=== PATIENT | female | born 1950 ===

== ENCOUNTER 2019-10-26 17:08 | Inpatient (IN) ==
[2019-10-26 18:14] LABS: Basophils % 0.2 %; Hematocrit 35.7 % (35.3-44.9); Hemoglobin 11.7 g/dL (11.5-15.4); Immature Granulocytes % 0.3 % (0-4); Lymphocytes # 1.1 K/mcL (0.6-4.6); Lymphocytes % 10.7 %; Mean Corpuscular HGB Conc 32.8 g/dL (31.6-35.5); Mean Corpuscular Hemoglobin 28.7 pg (28.0-33.3); Mean Corpuscular Volume 87.7 fL (83.0-100.0); Mean Platelet Volume 11.8 fL (9.4-12.4); Monocytes # 0.9 K/mcL (0.0-1.3); Monocytes % 8.3 %; Neutrophils # 8.4 K/mcL (1.6-8.9); Platelet Count 189 K/mcL (140-400); Red Blood Count 4.07 M/mcL (3.82-4.97); Red Cell Distribution Width 13.4 % (11.5-14.5); Segmented Neutrophils % 80.5 %; White Blood Count 10.4 K/mcL (4.3-11.1)
[2019-10-26 18:22] LABS: INR 1.4; Prothrombin Time 15.7 Seconds (9.4-12.1)
[2019-10-26 18:24] LABS: Activated Partial Thrombo Time 31.5 Seconds (26.0-36.0)
[2019-10-26 18:34] LABS: Albumin 3.9 g/dL (3.5-5.7); Albumin/Globulin Ratio 1.3 (1.1-2.2); Bilirubin,Total 0.9 mg/dL (0.3-1.0); Calcium 9.2 mg/dL (8.6-10.3); Globulin 3.1 g/dL (2.4-3.5); Potassium 3.4 mEq/L (3.5-5.1)
[2019-10-26] MEDS ORDERED: Isovue-370 500 ML BOTTLE IVP ONE (18:37)
[2019-10-26 18:39] LABS: Troponin I 3.38 ng/mL (< 0.04)
[2019-10-26] MEDS ORDERED: Aspirin 81 MG TAB.CHEW PO ONE (18:39)
[2019-10-26] MEDS ORDERED: *HR* Heparin 5,000 UNIT/ML VIAL IVP ONE (18:40)
[2019-10-26] MEDS ORDERED: *HR* Heparin 5,000 UNIT/ML VIAL IVP PRN (18:40)
[2019-10-26] MEDS: Heparin 25,000 UNIT/250 ML D5W 25,000 UNIT/250 ML IV.SOLN IVC SCH (19:08)
[2019-10-26 19:11] LABS: Thyroid Stimulating Hormone 0.674 mcIU/mL (0.340-5.600)
[2019-10-26 19:15] LABS: Hematocrit 32.9 % (35.3-44.9); Hemoglobin 11.3 g/dL (11.5-15.4); Mean Corpuscular HGB Conc 34.3 g/dL (31.6-35.5); Mean Corpuscular Hemoglobin 30.4 pg (28.0-33.3); Mean Corpuscular Volume 88.4 fL (83.0-100.0); Mean Platelet Volume 11.2 fL (9.4-12.4); Platelet Count 170 K/mcL (140-400); Red Blood Count 3.72 M/mcL (3.82-4.97); Red Cell Distribution Width 13.3 % (11.5-14.5)
[2019-10-26 19:20] LABS: INR 1.4; Prothrombin Time 15.6 Seconds (9.4-12.1)
[2019-10-26 19:24] LABS: Heparin anti-factor XA UFH < 0.04 IU/mL (0.30-0.70)
[2019-10-26 22:13] LABS: Bacteria,Urine Few per hpf (None-Few); Bilirubin,Urine Negative (Negative); Blood,Urine Negative (Negative); Clarity,Urine Turbid (Clear); Color,Urine Dark-Yellow (Yellow); Glucose,Urine (UA) Normal (Normal); Ketones,Urine Negative (Negative); Leukocyte Esterase,Urine Large (Negative); Mucus,Urine Few per lpf (None-Few); Nitrite,Urine Negative (Negative); Protein,Urine 200 mg/dL (Neg-Trace); RBC,Urine 15-30 per hpf (0-3); Specific Gravity,Urine > 1.030 (1.010-1.025); Squamous Epithelial Cell,Urine Few per hpf (None-Few); Urobilinogen,Urine Normal (Normal); WBC,Urine 50-100 per hpf (0-3)
[2019-10-26] MEDS ORDERED: Naloxone 0.4 MG/ML INJ IVP PRN (23:09)
[2019-10-26] MEDS ORDERED: *HR* Promethazine 25 MG/ML VIAL IVP PRN (23:09)
[2019-10-26] MEDS ORDERED: 0.9 % Sodium Chloride 1,000 ML IVC SCH (23:15)
[2019-10-27] MEDS ORDERED: *HR* Metoprolol 5 MG/5 ML VIAL IVP PRN (00:03)
[2019-10-27] MEDS ORDERED: *HR* Dextrose 50 % in Water (Vial) 50 ML VIAL IVP PRN (00:04)
[2019-10-27] MEDS ORDERED: Dextrose Gel 15 GM/37.5 ML TUBE PO PRN ×2 (00:04)
[2019-10-27] MEDS ORDERED: D5% in Water 1,000 ML IVC PRN (00:04)
[2019-10-27] MEDS: hydrALAZINE 25 MG TABLET PO SCH ×3 (00:28→20:26)
[2019-10-27 01:17] LABS: Basophils % 0.2 %; Hematocrit 32.2 % (35.3-44.9); Hemoglobin 10.9 g/dL (11.5-15.4); Immature Granulocytes % 0.5 % (0-4); Lymphocytes # 0.5 K/mcL (0.6-4.6); Lymphocytes % 7.7 %; Mean Corpuscular HGB Conc 33.9 g/dL (31.6-35.5); Mean Corpuscular Hemoglobin 29.9 pg (28.0-33.3); Mean Corpuscular Volume 88.5 fL (83.0-100.0); Mean Platelet Volume 10.9 fL (9.4-12.4); Monocytes # 0.4 K/mcL (0.0-1.3); Monocytes % 6.2 %; Neutrophils # 5.7 K/mcL (1.6-8.9); Platelet Count 142 K/mcL (140-400); Red Blood Count 3.64 M/mcL (3.82-4.97); Red Cell Distribution Width 13.5 % (11.5-14.5); Segmented Neutrophils % 85.4 %; White Blood Count 6.7 K/mcL (4.3-11.1)
[2019-10-27 01:36] LABS: INR 1.5; Prothrombin Time 16.5 Seconds (9.4-12.1)
[2019-10-27] MEDS: 0.9 % Sodium Chloride 1,000 ML IVC SCH ×2 (01:49→17:16)
[2019-10-27 01:50] LABS: Calcium 8.6 mg/dL (8.6-10.3); Chol/HDL Ratio 5.1 (0-4.9); Magnesium 1.2 mg/dL (1.6-2.6); Phosphorous 1.6 mg/dL (2.7-4.5); Potassium 3.7 mEq/L (3.5-5.1)
[2019-10-27] MEDS: *HR* Heparin 5,000 UNIT/ML VIAL IVP PRN ×2 (01:56→22:40)
[2019-10-27] MEDS: cefTRIAXone 1,000 MG in 0.9 % Sodium Chloride Mini Bag 100 ML IVPB SCH ×2 (03:02→17:17)
[2019-10-27] MEDS: Acetaminophen 325 MG TABLET PO PRN (03:26)
[2019-10-27 06:45] LABS: Ferritin 153 ng/mL (10-120); Iron < 10 mcg/dL (50-170); Transferrin 259 mg/dL (203-362)
[2019-10-27 06:51] LABS: Folate > 22.3 ng/mL (3.0-16.0); Vitamin B12 740 pg/mL (250-1100)
[2019-10-27] MEDS: Aspirin 325 MG TABLET PO SCH (07:56)
[2019-10-27] MEDS: Insulin LISPRO 300 UNITS/3 ML VIAL SQ SCH ×4 (07:57→20:28)
[2019-10-27] MEDS: Metoprolol XL (24 HR) Succ 50 MG TAB.ER.24H PO SCH (07:57)
[2019-10-27] MEDS: LIRAGLUTIDE SQ SCH (08:02)
[2019-10-27] MEDS: INSULIN DEGLUDEC SQ SCH (08:02)
[2019-10-27] MEDS: Iron Sucrose Complex 250 MG in 0.9 % Sodium Chloride 250 ML IVPB SCH (10:31)
[2019-10-27] MEDS ORDERED: Nitroglycerin 1,000 MCG/10 ML VIAL IV ONE (11:03)
[2019-10-27] MEDS ORDERED: Heparin 1,000 UNITS/500 mL 500 ML ONE (11:03)
[2019-10-27] MEDS ORDERED: *HR* Heparin 10,000 UNIT/10 ML VIAL ONE (11:03)
[2019-10-27] MEDS ORDERED: 0.9 % Sodium Chloride 2,000 ML ONE (11:03)
[2019-10-27] MEDS ORDERED: ISOVUE-370 200 ML INFUS..BTL ONE (11:03)
[2019-10-27] MEDS ORDERED: Tirofiban 12.5 MG/250ML 0 MG/0 ML BAG ONE (11:16)
[2019-10-27] MEDS ORDERED: *HR* Midazolam HCl 2 MG/2 ML VIAL ONE (11:30)
[2019-10-27] MEDS ORDERED: *HR* FentaNYL (PF) 100 MCG/2 ML VIAL ONE (11:30)
[2019-10-27 14:40] LABS: Estimated Average Glucose 163 mg/dl; Hemoglobin A1C 7.3 %
[2019-10-27 15:06] LABS: Magnesium 2.3 mg/dL (1.6-2.6); Phosphorous 3.1 mg/dL (2.7-4.5); Potassium 3.5 mEq/L (3.5-5.1)
[2019-10-27] MEDS: Heparin 25,000 UNIT/250 ML D5W 25,000 UNIT/250 ML IV.SOLN IVC SCH (20:27)
[2019-10-27] MEDS: Latanoprost 2.5 ML BOTTLE BOTH EYES SCH (22:47)
[2019-10-28 05:08] LABS: Hematocrit 28.5 % (35.3-44.9); Hemoglobin 9.5 g/dL (11.5-15.4); Mean Corpuscular HGB Conc 33.3 g/dL (31.6-35.5); Mean Corpuscular Hemoglobin 29.8 pg (28.0-33.3); Mean Corpuscular Volume 89.3 fL (83.0-100.0); Mean Platelet Volume 12.6 fL (9.4-12.4); Platelet Count 141 K/mcL (140-400); Red Blood Count 3.19 M/mcL (3.82-4.97); Red Cell Distribution Width 13.6 % (11.5-14.5); White Blood Count 5.4 K/mcL (4.3-11.1)
[2019-10-28] MEDS: *HR* Heparin 5,000 UNIT/ML VIAL IVP PRN ×2 (05:45→18:33)
[2019-10-28] MEDS: Aspirin 325 MG TABLET PO SCH (07:58)
[2019-10-28] MEDS: hydrALAZINE 25 MG TABLET PO SCH ×2 (07:58→19:57)
[2019-10-28] MEDS: Metoprolol XL (24 HR) Succ 50 MG TAB.ER.24H PO SCH (07:59)
[2019-10-28] MEDS: INSULIN DEGLUDEC SQ SCH (07:59)
[2019-10-28] MEDS: LIRAGLUTIDE SQ SCH (07:59)
[2019-10-28] MEDS: Iron Sucrose Complex 250 MG in 0.9 % Sodium Chloride 250 ML IVPB SCH (08:00)
[2019-10-28] MEDS: Insulin LISPRO 300 UNITS/3 ML VIAL SQ SCH ×4 (08:00→19:58)
[2019-10-28 08:45] LABS: BUN/Creatinine Ratio 26 (6-26); Blood Urea Nitrogen 24 mg/dL (8-23); Calcium 8.5 mg/dL (8.6-10.3); Carbon Dioxide 24 mEq/L (23-29); Chloride 107 mEq/L (98-107); Glucose 172 mg/dL (70-105); Osmolality,Calculated 292 (280-300); Potassium 3.6 mEq/L (3.5-5.1); Sodium 137 mEq/L (136-145); eGFR For African Americans > 60 (> 60); eGFR For Non-African Americans > 60 (> 60)
[2019-10-28] MEDS: Heparin 25,000 UNIT/250 ML D5W 25,000 UNIT/250 ML IV.SOLN IVC SCH (17:20)
[2019-10-28] MEDS: Latanoprost 2.5 ML BOTTLE BOTH EYES SCH (19:59)
[2019-10-29 01:14] LABS: Hemoglobin 9.9 g/dL (11.5-15.4); Mean Corpuscular HGB Conc 31.9 g/dL (31.6-35.5); Mean Corpuscular Hemoglobin 28.9 pg (28.0-33.3); Mean Corpuscular Volume 90.4 fL (83.0-100.0); Mean Platelet Volume 11.9 fL (9.4-12.4); Platelet Count 157 K/mcL (140-400); Red Blood Count 3.43 M/mcL (3.82-4.97); Red Cell Distribution Width 13.7 % (11.5-14.5); White Blood Count 5.9 K/mcL (4.3-11.1)
[2019-10-29 01:28] LABS: BUN/Creatinine Ratio 22 (6-26); Blood Urea Nitrogen 21 mg/dL (8-23); Calcium 8.5 mg/dL (8.6-10.3); Carbon Dioxide 23 mEq/L (23-29); Chloride 110 mEq/L (98-107); Glucose 158 mg/dL (70-105); Osmolality,Calculated 300 (280-300); Potassium 3.7 mEq/L (3.5-5.1); Sodium 142 mEq/L (136-145); eGFR For African Americans > 60 (> 60); eGFR For Non-African Americans 59 (> 60)
[2019-10-29] MEDS: Insulin LISPRO 300 UNITS/3 ML VIAL SQ SCH ×4 (09:42→21:36)
[2019-10-29] MEDS: Iron Sucrose Complex 250 MG in 0.9 % Sodium Chloride 250 ML IVPB SCH (09:44)
[2019-10-29] MEDS: Aspirin 325 MG TABLET PO SCH (09:48)
[2019-10-29] MEDS: hydrALAZINE 25 MG TABLET PO SCH ×2 (09:48→21:37)
[2019-10-29] MEDS: LIRAGLUTIDE SQ SCH (09:49)
[2019-10-29] MEDS: Metoprolol XL (24 HR) Succ 50 MG TAB.ER.24H PO SCH (09:49)
[2019-10-29] MEDS: INSULIN DEGLUDEC SQ SCH (09:49)
[2019-10-29] MEDS: Heparin 25,000 UNIT/250 ML D5W 25,000 UNIT/250 ML IV.SOLN IVC SCH (12:50)
[2019-10-29] MEDS: Acetaminophen 325 MG TABLET PO PRN (16:34)
[2019-10-29] MEDS: Chlorhexidine Rinse 15 ML MOUTHWASH MM SCH (21:35)
[2019-10-29] MEDS: Latanoprost 2.5 ML BOTTLE BOTH EYES SCH (21:35)
[2019-10-30 02:22] LABS: Hematocrit 28.4 % (35.3-44.9); Hemoglobin 9.4 g/dL (11.5-15.4); Mean Corpuscular HGB Conc 33.1 g/dL (31.6-35.5); Mean Corpuscular Hemoglobin 29.6 pg (28.0-33.3); Mean Corpuscular Volume 89.3 fL (83.0-100.0); Mean Platelet Volume 11.7 fL (9.4-12.4); Platelet Count 161 K/mcL (140-400); Red Blood Count 3.18 M/mcL (3.82-4.97); Red Cell Distribution Width 13.6 % (11.5-14.5)
[2019-10-30 02:27] LABS: BUN/Creatinine Ratio 18 (6-26); Blood Urea Nitrogen 14 mg/dL (8-23); Calcium 8.7 mg/dL (8.6-10.3); Carbon Dioxide 23 mEq/L (23-29); Chloride 108 mEq/L (98-107); Glucose 84 mg/dL (70-105); Osmolality,Calculated 290 (280-300); Potassium 3.3 mEq/L (3.5-5.1); Sodium 140 mEq/L (136-145); eGFR For African Americans > 60 (> 60); eGFR For Non-African Americans > 60 (> 60)
[2019-10-30] MEDS: Heparin 25,000 UNIT/250 ML D5W 25,000 UNIT/250 ML IV.SOLN IVC SCH (02:29)
[2019-10-30 02:30] LABS: White Blood Count 9.3 K/mcL (4.3-11.1)
[2019-10-30] MEDS ORDERED: Aspirin 81 MG TAB.CHEW PO ONE (06:00)
[2019-10-30] MEDS: Metoprolol XL (24 HR) Succ 50 MG TAB.ER.24H PO SCH (06:16)
[2019-10-30] MEDS: Chlorhexidine Rinse 15 ML MOUTHWASH MM SCH ×2 (06:17→20:15)
[2019-10-30] MEDS: Insulin LISPRO 300 UNITS/3 ML VIAL SQ SCH ×2 (07:11→11:32)
[2019-10-30] MEDS: Aspirin 325 MG TABLET PO SCH (07:14)
[2019-10-30] MEDS: hydrALAZINE 25 MG TABLET PO SCH (07:15)
[2019-10-30] MEDS ORDERED: Potassium Chloride 40 MEQ, Lidocaine 1% 2 ML in 0.9 % Sodium Chloride 500 ML IVPB ONE (07:55)
[2019-10-30] MEDS ORDERED: *HR* FentaNYL (PF) 1,000 MCG/20 ML VIAL ONE (08:25)
[2019-10-30] MEDS ORDERED: *HR* Midazolam HCl 5 MG/5 ML VIAL IVP ONE (08:25)
[2019-10-30] MEDS ORDERED: *HR* Rocuronium Bromide 50 MG/5 ML VIAL ONE (08:26)
[2019-10-30] MEDS ORDERED: *HR* PHENYLEPHRINE 1,000 MCG/10 ML SYRINGE IVP ONE (08:26)
[2019-10-30] MEDS ORDERED: *HR* Etomidate 20 MG/10 ML AMPUL IVP ONE (08:27)
[2019-10-30] MEDS ORDERED: Famotidine 20 MG/2 ML VIAL ONE (08:27)
[2019-10-30] MEDS ORDERED: Protamine Sulfate 250 MG/25 ML VIAL IVP ONE (08:29)
[2019-10-30] MEDS ORDERED: Tranexamic Acid 1,000 MG/10 ML VIAL ONE ×2 (08:29→14:13)
[2019-10-30] MEDS ORDERED: Calcium Gluconate 1,000 MG/10 ML VIAL ONE (08:29)
[2019-10-30] MEDS ORDERED: Metoprolol XL (24 HR) Succ 50 MG TAB.ER.24H PO ONE (08:33)
[2019-10-30] MEDS ORDERED: NiCARdipine 2.5 MG/10 ML Syringe IVPB ONE (08:36)
[2019-10-30] MEDS ORDERED: Lidocaine 2% Syringe 100 MG/5 ML IVP ONE (10:48)
[2019-10-30] MEDS ORDERED: *HR* Heparin 10,000 UNIT/10 ML VIAL IVP ONE (10:48)
[2019-10-30] MEDS ORDERED: Sodium Bicarbonate 50 MEQ/50 ML VIAL IVP ONE (10:48)
[2019-10-30] MEDS ORDERED: *HR* Phenylephrine 10 MG/ML VIAL IVC ONE (10:48)
[2019-10-30] MEDS ORDERED: *HR* Magnesium Sulfate 2 GM/50 ML PIGGYBACK IVPB ONE (10:48)
[2019-10-30] MEDS ORDERED: Mannitol 25% vial 12.5 GM/50 ML VIAL IVPB ONE (10:48)
[2019-10-30] MEDS ORDERED: Albumin Human 25% 25 GM/100 ML IV.SOLN IV ONE (10:48)
[2019-10-30] MEDS ORDERED: Tranexamic Acid 1,000 MG/10 ML VIAL IR ONE (10:48)
[2019-10-30] MEDS ORDERED: Heparin 1,000 UNITS/500 mL IV.SOLN IR ONE (10:48)
[2019-10-30] MEDS ORDERED: CeFAZolin 2 GM/120 ML BAG IVPB ONE (12:00)
[2019-10-30] MEDS ORDERED: Norepinephrine 4 MG in 0.9 % Sodium Chloride 250 ML IVC PRN (12:20)
[2019-10-30] MEDS ORDERED: Heparin 15,000 UNIT in 0.9 % Sodium Chloride 500 ML IV ONE (12:20)
[2019-10-30] MEDS ORDERED: Dextrose 50 % in Water (Vial) 30 ML, Sodium Bicarbonate 20 MEQ, Lidocaine 1% 5 ML, Insu... TH ONE ×3 (12:20)
[2019-10-30] MEDS ORDERED: Insulin Human Regular 100 UNIT in 0.9 % Sodium Chloride 100 ML IV PRN (12:20)
[2019-10-30] MEDS ORDERED: Dextrose 50 % in Water (Vial) 30 ML, Sodium Bicarbonate 20 MEQ, Potassium Chloride 15 M... TH ONE (12:20)
[2019-10-30 12:53] LABS: ABG Base Excess -3 mEq/L (-2 to 3); ABG Chloride 109 mEq/L (98-107); ABG Glucose 97 mg/dL (60-95); ABG HCO3 25 mEq/L (21-27); ABG Ionized Calcium 1.25 mmol/L (1.15-1.35); ABG Oxygen Saturation 100 % (95-98); ABG PCO2 52 mmHg (35-45); ABG PH 7.28 pH Units (7.32-7.45); ABG PO2 362 mmHg (85-104); ABG TCO2 26 mEq/L (20-26)
[2019-10-30 13:54] LABS: ABG Base Excess -2 mEq/L (-2 to 3); ABG Chloride 109 mEq/L (98-107); ABG Glucose 126 mg/dL (60-95); ABG HCO3 24 mEq/L (21-27); ABG Ionized Calcium 1.21 mmol/L (1.15-1.35); ABG Oxygen Saturation 98 % (95-98); ABG PCO2 43 mmHg (35-45); ABG PH 7.35 pH Units (7.32-7.45); ABG PO2 105 mmHg (85-104); ABG TCO2 25 mEq/L (20-26)
[2019-10-30 14:25] LABS: VBG Base Excess 0 mEq/L; VBG Chloride 105 mEq/L (98-107); VBG Glucose 187 mg/dl (65-95); VBG HCO3 26 mEq/L (21-27); VBG Ionized Calcium 1.04 mmol/L (1.15-1.35); VBG Oxygen Saturation 70 %; VBG PCO2 45 mmHg (41-51); VBG PH 7.37 pH Units (7.32-7.42); VBG PO2 38 mmHg (25-50); VBG Total CO2 27 mEq/L
[2019-10-30 14:47] LABS: ABG Base Excess -1 mEq/L (-2 to 3); ABG Chloride 104 mEq/L (98-107); ABG Glucose 188 mg/dL (60-95); ABG HCO3 24 mEq/L (21-27); ABG Ionized Calcium 1.06 mmol/L (1.15-1.35); ABG Oxygen Saturation 100 % (95-98); ABG PCO2 41 mmHg (35-45); ABG PH 7.37 pH Units (7.32-7.45); ABG PO2 489 mmHg (85-104); ABG TCO2 25 mEq/L (20-26)
[2019-10-30] MEDS ORDERED: Albumin Human 5% 50.0 GM/1,000 ML IV.SOLN ONE (14:55)
[2019-10-30 15:37] LABS: ABG Base Excess -4 mEq/L (-2 to 3); ABG Chloride 106 mEq/L (98-107); ABG Glucose 160 mg/dL (60-95); ABG HCO3 23 mEq/L (21-27); ABG Ionized Calcium 1.37 mmol/L (1.15-1.35); ABG Oxygen Saturation 96 % (95-98); ABG PCO2 45 mmHg (35-45); ABG PH 7.31 pH Units (7.32-7.45); ABG PO2 89 mmHg (85-104); ABG TCO2 24 mEq/L (20-26)
[2019-10-30] MEDS ORDERED: Insulin Regular, Human 100 UNIT/ML IV PRN (15:38)
[2019-10-30] MEDS ORDERED: Calcium Gluconate 1gm/50mL 1 GM/50 ML BAG IVPB PRN (15:38)
[2019-10-30] MEDS ORDERED: Potassium Chloride 40 MEQ/200 ML BAG IVPB PRN (15:38)
[2019-10-30] MEDS ORDERED: Acetaminophen 650 MG RECTAL SUPP RC PRN (15:38)
[2019-10-30] MEDS ORDERED: Ondansetron 4 MG/2 ML VIAL IVP PRN (15:38)
[2019-10-30] MEDS ORDERED: Albumin Human 5% 12.5 GM/250 ML IV.SOLN IVPB PRN (15:38)
[2019-10-30] MEDS ORDERED: *HR* Dextrose 50 % in Water (Vial) 50 ML VIAL IVP PRN (15:38)
[2019-10-30] MEDS ORDERED: Albumin Human 5% 12.5 GM/250 ML IV.SOLN ONE (15:41)
[2019-10-30] MEDS: Pantoprazole 40 MG VIAL IVP SCH ×2 (16:02→17:01)
[2019-10-30 16:26] LABS: ABG Base Excess -1 mEq/L (-2 to 3); ABG HCO3 25 mEq/L (21-27); ABG Oxygen Saturation 96 % (95-98); ABG PCO2 45 mmHg (35-45); ABG PH 7.35 pH Units (7.32-7.45); ABG PO2 86 mmHg (85-104); ABG TCO2 26 mEq/L (20-26); Blood Gas VT 500 cc
[2019-10-30 16:35] LABS: Basophils % 0.6 %; Eosinophils % 1.7 %; Hematocrit 32.7 % (35.3-44.9); Nucleated Red Blood Cells 0.2 /100 WBC (0)
[2019-10-30 16:37] LABS: Basophils # 0.1 K/mcL (0.0-0.2); Eosinophils # 0.2 K/mcL (0.0-0.6); Hemoglobin 10.6 g/dL (11.5-15.4); Immature Granulocytes % 2.4 % (0-4); Immature Platelets 7.3 % (1.1-6.1); Lymphocytes # 2.2 K/mcL (0.6-4.6); Lymphocytes % 22.2 %; Mean Corpuscular HGB Conc 32.4 g/dL (31.6-35.5); Mean Corpuscular Volume 89.6 fL (83.0-100.0); Mean Platelet Volume 11.8 fL (9.4-12.4); Monocytes # 0.8 K/mcL (0.0-1.3); Monocytes % 7.6 %; Neutrophils # 6.5 K/mcL (1.6-8.9); Platelet Count 83 K/mcL (140-400); Red Blood Count 3.65 M/mcL (3.82-4.97); Red Cell Distribution Width 14.1 % (11.5-14.5); Segmented Neutrophils % 65.5 %; White Blood Count 9.9 K/mcL (4.3-11.1)
[2019-10-30] MEDS: niCARdipine 20 MG/200 ML MLS IVC SCH ×3 (16:42→20:14)
[2019-10-30] MEDS: Norepinephrine 4 MG/254 ML IV.SOLN IVC SCH (16:43)
[2019-10-30 16:45] LABS: INR 1.4; Prothrombin Time 16.2 Seconds (9.4-12.1)
[2019-10-30 16:48] LABS: Activated Partial Thrombo Time 29.4 Seconds (26.0-36.0)
[2019-10-30 16:51] LABS: BUN/Creatinine Ratio 15 (6-26); Blood Urea Nitrogen 11 mg/dL (8-23); Calcium 8.8 mg/dL (8.6-10.3); Carbon Dioxide 25 mEq/L (23-29); Chloride 110 mEq/L (98-107); Glucose 126 mg/dL (70-105); Magnesium 2.4 mg/dL (1.6-2.6); Osmolality,Calculated 291 (280-300); Potassium 3.8 mEq/L (3.5-5.1); Sodium 140 mEq/L (136-145); eGFR For African Americans > 60 (> 60); eGFR For Non-African Americans > 60 (> 60)
[2019-10-30] MEDS: 0.9 % Sodium Chloride w KCl 20 MEQ/1,000 ML MLS IVC SCH (17:02)
[2019-10-30 17:05] LABS: Platelet Estimate Decreased (Normal)
[2019-10-30] MEDS: Metoclopramide 10 MG/2 ML VIAL IVP SCH (17:13)
[2019-10-30] MEDS: Insulin Human Regular 100 UNIT in 0.9 % Sodium Chloride 100 ML IVC SCH ×2 (17:14→17:53)
[2019-10-30] MEDS: *HR* FentaNYL (PF) 100 MCG/2 ML VIAL IVP PRN ×2 (17:22→22:04)
[2019-10-30] MEDS: CeFAZolin 2 GM/120 ML BAG IVPB SCH (20:14)
[2019-10-30] MEDS: *HR* OxyCODONE/APAP 5/325 TABLET PO PRN (20:15)
[2019-10-30 20:21] LABS: ABG Base Excess -2 mEq/L (-2 to 3); ABG HCO3 23 mEq/L (21-27); ABG Oxygen Saturation 93 % (95-98); ABG PCO2 40 mmHg (35-45); ABG PH 7.37 pH Units (7.32-7.45); ABG PO2 69 mmHg (85-104); ABG TCO2 24 mEq/L (20-26); Blood Gas Modality CPAP/PS; Blood Gas Pressure Support 5 cm H2O
[2019-10-30 21:15] LABS: ABG Base Excess -3 mEq/L (-2 to 3); ABG HCO3 22 mEq/L (21-27); ABG Oxygen Saturation 95 % (95-98); ABG PCO2 40 mmHg (35-45); ABG PH 7.36 pH Units (7.32-7.45); ABG PO2 81 mmHg (85-104); ABG TCO2 24 mEq/L (20-26); Blood Gas Modality CPAP/PS; Blood Gas Pressure Support 5 cm H2O
[2019-10-30] MEDS: Latanoprost 2.5 ML BOTTLE BOTH EYES SCH (22:20)
[2019-10-31] MEDS: Metoclopramide 10 MG/2 ML VIAL IVP SCH ×5 (00:11→23:34)
[2019-10-31] MEDS: *HR* OxyCODONE/APAP 5/325 TABLET PO PRN ×6 (00:11→20:21)
[2019-10-31] MEDS: niCARdipine 20 MG/200 ML MLS IVC SCH ×6 (00:16→23:35)
[2019-10-31] MEDS: *HR* FentaNYL (PF) 100 MCG/2 ML VIAL IVP PRN ×3 (00:30→10:04)
[2019-10-31] MEDS: CeFAZolin 2 GM/120 ML BAG IVPB SCH (04:10)
[2019-10-31 04:58] LABS: Basophils % 0.3 %; Eosinophils % 0.1 %; Hematocrit 34.4 % (35.3-44.9); Hemoglobin 11.1 g/dL (11.5-15.4); Immature Granulocytes % 2.1 % (0-4); Lymphocytes # 1.4 K/mcL (0.6-4.6); Lymphocytes % 13.6 %; Mean Corpuscular HGB Conc 32.3 g/dL (31.6-35.5); Mean Corpuscular Hemoglobin 29.2 pg (28.0-33.3); Mean Corpuscular Volume 90.5 fL (83.0-100.0); Mean Platelet Volume 11.5 fL (9.4-12.4); Monocytes # 1.1 K/mcL (0.0-1.3); Monocytes % 11.4 %; Neutrophils # 7.3 K/mcL (1.6-8.9); Platelet Count 134 K/mcL (140-400); Red Cell Distribution Width 14.2 % (11.5-14.5); Segmented Neutrophils % 72.5 %
[2019-10-31 05:02] LABS: INR 1.2
[2019-10-31 05:04] LABS: Activated Partial Thrombo Time 29.3 Seconds (26.0-36.0)
[2019-10-31 05:28] LABS: Platelet Estimate Normal (Normal)
[2019-10-31 05:32] LABS: Calcium 8.5 mg/dL (8.6-10.3); Magnesium 2.1 mg/dL (1.6-2.6); Potassium 4.6 mEq/L (3.5-5.1)
[2019-10-31] MEDS: Aspirin 325 MG TABLET PO SCH (07:30)
[2019-10-31] MEDS: Aspirin Enteric Coated 81 MG Tablet PO SCH (07:41)
[2019-10-31] MEDS: Furosemide 20 MG/2 ML VIAL IVP SCH ×2 (07:41→20:21)
[2019-10-31] MEDS: Chlorhexidine Rinse 15 ML MOUTHWASH MM SCH ×2 (07:41→20:21)
[2019-10-31] MEDS: Pantoprazole 40 MG VIAL IVP SCH (07:41)
[2019-10-31] MEDS ORDERED: Metoprolol XL (24 HR) Succ 25 MG TAB.ER.24H PO SCH (09:00)
[2019-10-31] MEDS: 0.9 % Sodium Chloride w KCl 20 MEQ/1,000 ML MLS IVC SCH (13:10)
[2019-10-31] MEDS: Norepinephrine 4 MG/254 ML IV.SOLN IVC SCH (13:40)
[2019-10-31] MEDS: Insulin Human Regular 100 UNIT in 0.9 % Sodium Chloride 100 ML IVC SCH (13:58)
[2019-10-31] MEDS ORDERED: D5% in Water 1,000 ML IVC PRN (14:19)
[2019-10-31] MEDS ORDERED: *HR* FentaNYL (PF) 100 MCG/2 ML VIAL IVP PRN (15:38)
[2019-10-31] MEDS: Insulin LISPRO 300 UNITS/3 ML VIAL SQ SCH ×2 (16:38→20:21)
[2019-10-31] MEDS: *HR* Heparin 5,000 UNIT/ML VIAL SQ SCH (17:01)
[2019-10-31] MEDS: Latanoprost 2.5 ML BOTTLE BOTH EYES SCH (20:22)
[2019-11-01] MEDS: *HR* OxyCODONE/APAP 5/325 TABLET PO PRN ×5 (00:29→20:23)
[2019-11-01] MEDS: niCARdipine 20 MG/200 ML MLS IVC SCH ×10 (02:03→22:23)
[2019-11-01 04:53] LABS: Basophils % 0.3 %; Eosinophils # 0.1 K/mcL (0.0-0.6); Eosinophils % 1.2 %; Hematocrit 32.2 % (35.3-44.9); Hemoglobin 10.3 g/dL (11.5-15.4); Immature Granulocytes % 1.8 % (0-4); Lymphocytes % 17.6 %; Mean Corpuscular Hemoglobin 29.3 pg (28.0-33.3); Mean Corpuscular Volume 91.7 fL (83.0-100.0); Mean Platelet Volume 12.3 fL (9.4-12.4); Monocytes # 1.4 K/mcL (0.0-1.3); Monocytes % 12.3 %; Neutrophils # 7.5 K/mcL (1.6-8.9); Nucleated Red Blood Cells 0.2 /100 WBC (0); Platelet Count 132 K/mcL (140-400); Red Blood Count 3.51 M/mcL (3.82-4.97); Red Cell Distribution Width 14.6 % (11.5-14.5); Segmented Neutrophils % 66.8 %; White Blood Count 11.2 K/mcL (4.3-11.1)
[2019-11-01] MEDS: Metoclopramide 10 MG/2 ML VIAL IVP SCH ×4 (05:01→23:57)
[2019-11-01] MEDS: *HR* Heparin 5,000 UNIT/ML VIAL SQ SCH ×2 (05:01→15:11)
[2019-11-01 05:11] LABS: Calcium 7.8 mg/dL (8.6-10.3); Potassium 4.7 mEq/L (3.5-5.1)
[2019-11-01] MEDS: Chlorhexidine Rinse 15 ML MOUTHWASH MM SCH ×2 (07:12→20:25)
[2019-11-01] MEDS: Furosemide 20 MG/2 ML VIAL IVP SCH (07:12)
[2019-11-01] MEDS: Aspirin Enteric Coated 81 MG Tablet PO SCH (07:12)
[2019-11-01] MEDS: Pantoprazole 40 MG VIAL IVP SCH (07:12)
[2019-11-01] MEDS: Insulin LISPRO 300 UNITS/3 ML VIAL SQ SCH ×4 (07:54→21:28)
[2019-11-01] MEDS: 0.9 % Sodium Chloride w KCl 20 MEQ/1,000 ML MLS IVC SCH ×2 (08:11→10:09)
[2019-11-01 16:02] LABS: Uric Acid 8.1 mg/dL (2.3-7.6)
[2019-11-01 17:24] LABS: Bacteria,Urine Few per hpf (None-Few); Bilirubin,Urine Negative (Negative); Blood,Urine Trace (Negative); Clarity,Urine Turbid (Clear); Color,Urine Yellow (Yellow); Glucose,Urine (UA) Normal (Normal); Hyaline Casts,Urine Few per lpf (None Seen); Ketones,Urine Negative (Negative); Leukocyte Esterase,Urine Moderate (Negative); Mucus,Urine Few per lpf (None-Few); Nitrite,Urine Negative (Negative); Protein,Urine Trace mg/dL (Neg-Trace); Renal Epithelial Cells,Urine Few per hpf (None-Few); Specific Gravity,Urine 1.027 (1.010-1.025); Squamous Epithelial Cell,Urine Few per hpf (None-Few); Transitional Epi Cells,Urine Few per hpf (None-Few); Urobilinogen,Urine Normal (Normal); WBC,Urine 15-30 per hpf (0-3)
[2019-11-01 17:26] LABS: Protein/Creatinine Ratio,Urine 0.14 mg/mg (0.00-0.20)
[2019-11-01] MEDS ORDERED: Vicks Vaporub Oint 50 GM PACKAGE TP PRN (17:50)
[2019-11-01] MEDS: Latanoprost 2.5 ML BOTTLE BOTH EYES SCH (20:25)
[2019-11-02 05:16] LABS: Basophils # 0.1 K/mcL (0.0-0.2); Basophils % 0.5 %; Eosinophils # 0.3 K/mcL (0.0-0.6); Eosinophils % 2.4 %; Hematocrit 33.2 % (35.3-44.9); Hemoglobin 10.8 g/dL (11.5-15.4); Immature Granulocytes % 3.2 % (0-4); Lymphocytes # 2.1 K/mcL (0.6-4.6); Lymphocytes % 18.4 %; Mean Corpuscular HGB Conc 32.5 g/dL (31.6-35.5); Mean Corpuscular Hemoglobin 29.5 pg (28.0-33.3); Mean Corpuscular Volume 90.7 fL (83.0-100.0); Mean Platelet Volume 12.4 fL (9.4-12.4); Monocytes # 1.5 K/mcL (0.0-1.3); Monocytes % 12.9 %; Neutrophils # 7.3 K/mcL (1.6-8.9); Nucleated Red Blood Cells 0.3 /100 WBC (0); Platelet Count 173 K/mcL (140-400); Red Blood Count 3.66 M/mcL (3.82-4.97); Red Cell Distribution Width 14.6 % (11.5-14.5); Segmented Neutrophils % 62.6 %; White Blood Count 11.6 K/mcL (4.3-11.1)
[2019-11-02 05:32] LABS: Calcium 7.6 mg/dL (8.6-10.3); Potassium 4.4 mEq/L (3.5-5.1)
[2019-11-02 05:37] LABS: Platelet Estimate Normal (Normal)
[2019-11-02] MEDS: Metoclopramide 10 MG/2 ML VIAL IVP SCH ×2 (05:43→11:27)
[2019-11-02] MEDS: *HR* Heparin 5,000 UNIT/ML VIAL SQ SCH ×2 (05:43→16:17)
[2019-11-02] MEDS: niCARdipine 20 MG/200 ML MLS IVC SCH (08:45)
[2019-11-02] MEDS: Insulin LISPRO 300 UNITS/3 ML VIAL SQ SCH ×4 (08:45→20:21)
[2019-11-02] MEDS: *HR* OxyCODONE/APAP 5/325 TABLET PO PRN ×3 (08:46→20:21)
[2019-11-02] MEDS: Aspirin Enteric Coated 81 MG Tablet PO SCH (08:46)
[2019-11-02] MEDS: Chlorhexidine Rinse 15 ML MOUTHWASH MM SCH ×2 (08:47→20:20)
[2019-11-02] MEDS ORDERED: *HR* FentaNYL (PF) 100 MCG/2 ML VIAL IVP PRN (09:53)
[2019-11-02] MEDS: Ipratropium/Albuterol Neb 3 ML IH PRN ×3 (10:59→23:37)
[2019-11-02] MEDS: Acetylcysteine 10% 2 ML INHSOL IH SCH ×3 (10:59→23:38)
[2019-11-02] MEDS ORDERED: Acetylcysteine 10% 2 ML INHSOL IH SCH (11:00)
[2019-11-02] MEDS: hydrALAZINE 10 MG TABLET PO SCH ×2 (11:26→16:17)
[2019-11-02] MEDS: Fluticasone Propionate Nasal 50 MCG/SPRAY BOTTLE NS SCH ×2 (11:28→20:22)
[2019-11-02] MEDS ORDERED: Albumin 25% 25gram/100mL 25 GM/100 ML IV.SOLN IVPB ONE (13:28)
[2019-11-02] MEDS ORDERED: Furosemide 40 MG/4 ML VIAL IVP ONE (13:29)
[2019-11-02 13:33] LABS: VBG Ionized Calcium 1.11 mmol/L (1.15-1.35)
[2019-11-02] MEDS: Calcium Gluconate 1gm/50mL 1 GM/50 ML BAG IVPB SCH ×2 (16:18→17:07)
[2019-11-02 19:02] LABS: Calcium 8.5 mg/dL (8.6-10.3); Potassium 4.4 mEq/L (3.5-5.1)
[2019-11-02] MEDS: cefTRIAXone 1,000 MG in Water for inj. (sterile) 10 ML IVP SCH (20:20)
[2019-11-02] MEDS: Latanoprost 2.5 ML BOTTLE BOTH EYES SCH (20:22)
[2019-11-03] MEDS: *HR* OxyCODONE/APAP 5/325 TABLET PO PRN ×4 (00:50→20:40)
[2019-11-03] MEDS: hydrALAZINE 10 MG TABLET PO SCH ×4 (00:50→18:27)
[2019-11-03] MEDS: niCARdipine 20 MG/200 ML MLS IVC SCH (03:09)
[2019-11-03] MEDS: Ipratropium/Albuterol Neb 3 ML IH PRN (03:53)
[2019-11-03] MEDS: Acetylcysteine 10% 2 ML INHSOL IH SCH ×4 (03:53→22:02)
[2019-11-03 04:36] LABS: Basophils % 0.4 %; Eosinophils # 0.3 K/mcL (0.0-0.6); Eosinophils % 2.9 %; Hemoglobin 10.9 g/dL (11.5-15.4); Lymphocytes # 2.1 K/mcL (0.6-4.6); Lymphocytes % 23.9 %; Mean Corpuscular HGB Conc 32.1 g/dL (31.6-35.5); Mean Corpuscular Hemoglobin 29.3 pg (28.0-33.3); Mean Corpuscular Volume 91.4 fL (83.0-100.0); Monocytes # 0.9 K/mcL (0.0-1.3); Monocytes % 9.9 %; Neutrophils # 5.4 K/mcL (1.6-8.9); Nucleated Red Blood Cells 0.6 /100 WBC (0); Platelet Count 216 K/mcL (140-400); Red Blood Count 3.72 M/mcL (3.82-4.97); Red Cell Distribution Width 14.7 % (11.5-14.5); Segmented Neutrophils % 59.9 %
[2019-11-03 04:54] LABS: Calcium 8.3 mg/dL (8.6-10.3); Potassium 4.9 mEq/L (3.5-5.1)
[2019-11-03] MEDS: *HR* Heparin 5,000 UNIT/ML VIAL SQ SCH ×2 (05:18→18:25)
[2019-11-03] MEDS: cefTRIAXone 1,000 MG in Water for inj. (sterile) 10 ML IVP SCH (08:10)
[2019-11-03] MEDS: Chlorhexidine Rinse 15 ML MOUTHWASH MM SCH ×2 (08:10→20:41)
[2019-11-03] MEDS: Insulin LISPRO 300 UNITS/3 ML VIAL SQ SCH ×4 (08:11→20:44)
[2019-11-03] MEDS: Aspirin Enteric Coated 81 MG Tablet PO SCH (08:11)
[2019-11-03] MEDS: Fluticasone Propionate Nasal 50 MCG/SPRAY BOTTLE NS SCH ×2 (08:11→20:39)
[2019-11-03] MEDS ORDERED: Albumin 25% 25gram/100mL 25 GM/100 ML IV.SOLN IVPB ONE (09:07)
[2019-11-03] MEDS: Ipratropium/Albuterol Neb 3 ML IH SCH ×3 (09:35→22:02)
[2019-11-03] MEDS ORDERED: Furosemide 40 MG/4 ML VIAL IVP ONE (10:00)
[2019-11-03] MEDS: Latanoprost 2.5 ML BOTTLE BOTH EYES SCH (20:38)
[2019-11-04] MEDS: hydrALAZINE 10 MG TABLET PO SCH ×5 (01:02→23:46)
[2019-11-04] MEDS: Acetylcysteine 10% 2 ML INHSOL IH SCH ×4 (03:33→22:01)
[2019-11-04] MEDS: Ipratropium/Albuterol Neb 3 ML IH SCH ×4 (03:33→22:01)
[2019-11-04] MEDS: *HR* Heparin 5,000 UNIT/ML VIAL SQ SCH ×2 (04:41→16:21)
[2019-11-04] MEDS: *HR* OxyCODONE/APAP 5/325 TABLET PO PRN ×4 (04:42→21:45)
[2019-11-04 05:55] LABS: Hematocrit 32.3 % (35.3-44.9); Hemoglobin 10.4 g/dL (11.5-15.4); Mean Corpuscular HGB Conc 32.2 g/dL (31.6-35.5); Mean Corpuscular Hemoglobin 29.1 pg (28.0-33.3); Mean Corpuscular Volume 90.5 fL (83.0-100.0); Platelet Count 268 K/mcL (140-400); Red Blood Count 3.57 M/mcL (3.82-4.97); Red Cell Distribution Width 14.7 % (11.5-14.5); White Blood Count 7.9 K/mcL (4.3-11.1)
[2019-11-04 06:12] LABS: BUN/Creatinine Ratio 44 (6-26); Blood Urea Nitrogen 34 mg/dL (8-23); Calcium 8.5 mg/dL (8.6-10.3); Carbon Dioxide 22 mEq/L (23-29); Chloride 106 mEq/L (98-107); Glucose 170 mg/dL (70-105); Osmolality,Calculated 292 (280-300); Potassium 4.3 mEq/L (3.5-5.1); Sodium 135 mEq/L (136-145); eGFR For African Americans > 60 (> 60); eGFR For Non-African Americans > 60 (> 60)
[2019-11-04] MEDS: Chlorhexidine Rinse 15 ML MOUTHWASH MM SCH ×2 (08:00→19:54)
[2019-11-04] MEDS: Aspirin Enteric Coated 81 MG Tablet PO SCH (08:00)
[2019-11-04] MEDS: Insulin LISPRO 300 UNITS/3 ML VIAL SQ SCH ×4 (08:00→19:55)
[2019-11-04] MEDS: Fluticasone Propionate Nasal 50 MCG/SPRAY BOTTLE NS SCH ×2 (08:01→19:55)
[2019-11-04] MEDS: Furosemide 40 MG TABLET PO SCH ×2 (12:25→16:22)
[2019-11-04] MEDS: Valsartan 320 MG, hydroCHLOROthiazide 25 MG PO SCH (16:21)
[2019-11-04] MEDS: Latanoprost 2.5 ML BOTTLE BOTH EYES SCH (19:55)
[2019-11-05] MEDS: Acetylcysteine 10% 2 ML INHSOL IH SCH ×4 (03:56→22:10)
[2019-11-05] MEDS: Ipratropium/Albuterol Neb 3 ML IH SCH ×4 (03:56→22:10)
[2019-11-05] MEDS: *HR* OxyCODONE/APAP 5/325 TABLET PO PRN ×5 (04:01→23:13)
[2019-11-05 04:39] LABS: Hematocrit 37.2 % (35.3-44.9); Hemoglobin 11.9 g/dL (11.5-15.4); Mean Corpuscular Hemoglobin 29.2 pg (28.0-33.3); Mean Corpuscular Volume 91.4 fL (83.0-100.0); Mean Platelet Volume 10.5 fL (9.4-12.4); Platelet Count 318 K/mcL (140-400); Red Blood Count 4.07 M/mcL (3.82-4.97); Red Cell Distribution Width 14.9 % (11.5-14.5); White Blood Count 9.8 K/mcL (4.3-11.1)
[2019-11-05 04:58] LABS: BUN/Creatinine Ratio 37 (6-26); Blood Urea Nitrogen 29 mg/dL (8-23); Calcium 8.9 mg/dL (8.6-10.3); Carbon Dioxide 23 mEq/L (23-29); Chloride 104 mEq/L (98-107); Glucose 158 mg/dL (70-105); Osmolality,Calculated 293 (280-300); Potassium 4.1 mEq/L (3.5-5.1); Sodium 137 mEq/L (136-145); eGFR For African Americans > 60 (> 60); eGFR For Non-African Americans > 60 (> 60)
[2019-11-05] MEDS: hydrALAZINE 10 MG TABLET PO SCH ×3 (05:33→17:24)
[2019-11-05] MEDS: *HR* Heparin 5,000 UNIT/ML VIAL SQ SCH ×2 (05:33→17:23)
[2019-11-05] MEDS: Aspirin Enteric Coated 81 MG Tablet PO SCH (07:43)
[2019-11-05] MEDS: Furosemide 40 MG TABLET PO SCH ×2 (07:43→17:24)
[2019-11-05] MEDS: Chlorhexidine Rinse 15 ML MOUTHWASH MM SCH ×2 (07:44→20:18)
[2019-11-05] MEDS: Valsartan 320 MG, hydroCHLOROthiazide 25 MG PO SCH (07:44)
[2019-11-05] MEDS: Fluticasone Propionate Nasal 50 MCG/SPRAY BOTTLE NS SCH ×2 (07:44→20:18)
[2019-11-05] MEDS: Insulin LISPRO 300 UNITS/3 ML VIAL SQ SCH ×4 (07:45→20:21)
[2019-11-05] MEDS ORDERED: Vicks Vaporub Oint 50 GM PACKAGE TP PRN (15:24)
[2019-11-05] MEDS ORDERED: *HR* FentaNYL (PF) 100 MCG/2 ML VIAL IVP PRN (15:24)
[2019-11-05] MEDS ORDERED: Ondansetron 4 MG/2 ML VIAL IVP PRN (15:24)
[2019-11-05] MEDS ORDERED: Naloxone 0.4 MG/ML INJ IVP PRN (15:24)
[2019-11-05] MEDS ORDERED: *HR* Dextrose 50 % in Water (Vial) 50 ML VIAL IVP PRN (15:24)
[2019-11-05] MEDS ORDERED: D5% in Water 1,000 ML IVC PRN (15:24)
[2019-11-05] MEDS ORDERED: Dextrose Gel 15 GM/37.5 ML TUBE PO PRN ×2 (15:24)
[2019-11-05] MEDS ORDERED: levoFLOXacin 500 MG/100 ML 500 MG/100 ML BAG IVPB SCH (18:00)
[2019-11-05] MEDS: Latanoprost 2.5 ML BOTTLE BOTH EYES SCH (21:38)
[2019-11-06] MEDS: hydrALAZINE 10 MG TABLET PO SCH ×5 (03:30→23:53)
[2019-11-06] MEDS: Acetylcysteine 10% 2 ML INHSOL IH SCH ×4 (03:31→22:57)
[2019-11-06] MEDS: Ipratropium/Albuterol Neb 3 ML IH SCH ×4 (03:31→22:57)
[2019-11-06 03:56] LABS: Hematocrit 33.4 % (35.3-44.9); Hemoglobin 10.7 g/dL (11.5-15.4); Mean Corpuscular Hemoglobin 28.8 pg (28.0-33.3); Mean Platelet Volume 10.2 fL (9.4-12.4); Platelet Count 327 K/mcL (140-400); Red Blood Count 3.71 M/mcL (3.82-4.97); Red Cell Distribution Width 14.8 % (11.5-14.5); White Blood Count 8.9 K/mcL (4.3-11.1)
[2019-11-06 04:14] LABS: BUN/Creatinine Ratio 37 (6-26); Blood Urea Nitrogen 33 mg/dL (8-23); Calcium 8.8 mg/dL (8.6-10.3); Carbon Dioxide 26 mEq/L (23-29); Chloride 101 mEq/L (98-107); Glucose 170 mg/dL (70-105); Osmolality,Calculated 291 (280-300); Potassium 4.2 mEq/L (3.5-5.1); Sodium 135 mEq/L (136-145); eGFR For African Americans > 60 (> 60); eGFR For Non-African Americans > 60 (> 60)
[2019-11-06] MEDS: *HR* Heparin 5,000 UNIT/ML VIAL SQ SCH ×2 (05:35→16:39)
[2019-11-06] MEDS: *HR* OxyCODONE/APAP 5/325 TABLET PO PRN ×4 (05:57→21:29)
[2019-11-06] MEDS: Aspirin Enteric Coated 81 MG Tablet PO SCH (07:48)
[2019-11-06] MEDS: Furosemide 40 MG TABLET PO SCH ×2 (07:49→16:39)
[2019-11-06] MEDS: Chlorhexidine Rinse 15 ML MOUTHWASH MM SCH ×2 (07:50→21:29)
[2019-11-06] MEDS: Valsartan 320 MG, hydroCHLOROthiazide 25 MG PO SCH (07:50)
[2019-11-06] MEDS: Insulin LISPRO 300 UNITS/3 ML VIAL SQ SCH ×4 (07:51→21:35)
[2019-11-06] MEDS: Fluticasone Propionate Nasal 50 MCG/SPRAY BOTTLE NS SCH ×2 (07:52→21:35)
[2019-11-06] MEDS: Latanoprost 2.5 ML BOTTLE BOTH EYES SCH (21:38)
[2019-11-06] MEDS: Acetaminophen 325 MG TABLET PO PRN (23:52)
[2019-11-07] MEDS: *HR* OxyCODONE/APAP 5/325 TABLET PO PRN ×2 (04:37→08:23)
[2019-11-07] MEDS: Ipratropium/Albuterol Neb 3 ML IH SCH ×2 (04:40→10:26)
[2019-11-07] MEDS: Acetylcysteine 10% 2 ML INHSOL IH SCH ×2 (04:40→10:27)
[2019-11-07] MEDS: Acetaminophen 325 MG TABLET PO PRN (06:20)
[2019-11-07] MEDS: *HR* Heparin 5,000 UNIT/ML VIAL SQ SCH (06:20)
[2019-11-07] MEDS: hydrALAZINE 10 MG TABLET PO SCH (06:20)
[2019-11-07 07:31] VITALS: BP 133/56
[2019-11-07] MEDS: Valsartan 320 MG, hydroCHLOROthiazide 25 MG PO SCH (08:22)
[2019-11-07] MEDS: Furosemide 40 MG TABLET PO SCH (08:22)
[2019-11-07] MEDS: Fluticasone Propionate Nasal 50 MCG/SPRAY BOTTLE NS SCH (08:23)
[2019-11-07] MEDS: Chlorhexidine Rinse 15 ML MOUTHWASH MM SCH (08:23)
[2019-11-07] MEDS: Aspirin Enteric Coated 81 MG Tablet PO SCH (08:23)
[2019-11-07] MEDS: Insulin LISPRO 300 UNITS/3 ML VIAL SQ SCH (08:24)
== END 2019-11-07 10:49 | DRG 234 ==
LOC: EMEROOARM 17:08 → 2ANU 17:08 → SUATTDRO 21:56 → 2ANU 22:44 → ICNU 10-30 13:47 → 2NNU 11-05 17:39
PROVIDERS: ADMIT Student in an Organized Health Care Education/Training Program; ATTEND Family Medicine